=== PATIENT | female | born 1960 | race Caucasian/White ===

== ENCOUNTER → 2025-03-05 | Outpatient (CLI) | payer MEDICARE | LOC: LAB SHORT 14:30 → LAB 14:30 | DX: N39.0 Urinary tract infection, site not specified (principal) | CPT/HCPCS: 87086 ==

== ENCOUNTER 2025-03-17 21:22 | Emergency (ER) | payer MEDICARE ==
[~2025-03-17] VITALS: Ht 160 cm; Wt 45.4 kg
[2025-03-17 22:14] LABS: Source, Urine Clean Catch
[2025-03-17 22:17] LABS: Color, Urine Amber (P-Yellow); Glucose Qualitative, Urine Neg (Neg); Ketones, Urine Neg (Neg); Leukocyte Esterase, Urine 3+ (Neg); Protein, Urine 2+ (Neg); Specific Gravity, Urine 1.005 (1.003-1.022); Urobilinogen, Urine 1+ (Normal)
[2025-03-17 22:25] LABS: Bilirubin, Urine 1+ (Neg)
[2025-03-17 22:27] LABS: White Blood Cells, Urine TNTC /hpf (0-5)
[2025-03-17] MEDS ORDERED: BACTRIM DS TAB1 EAC1 PO (23:43)
[2025-03-17] MEDS ORDERED: Trimethoprim/Sulfamethoxazole DS Tab PO ONE (23:45)
[2025-03-17 23:54] VITALS: BP 142/59
== END 2025-03-17 23:55 | disposition home or self-care (01) ==
LOC: ER 21:22
PROVIDERS: Student in an Organized Health Care Education/Training Program
DX: N30.00 Acute cystitis without hematuria (principal); B37.31 Acute candidiasis of vulva and vagina; Z88.8 Allergy status to other drugs, medicaments and biological substances
CPT/HCPCS: 81001; 87077; 87086; 87186; 99283; A9270